=== PATIENT | male | born 1970 | race Caucasian/White ===

== ENCOUNTER 2021-01-09 09:32 | Emergency (ER) | payer OTHER ==
--- NOTE | 2021-01-09 09:33 | ERPHSYRPT ---
- History of Present Illness Time Seen by Provider: 01/09/21 09:33 Historian: patient Exam Limitations: no limitations Physician History: This is a 50-year-old white male who presents with right-sided chest pain that radiates around to his right upper back. The patient states that he has had a history of pneumonia in the past and that his symptoms feel as though he has recurrent pneumonia. He has not been coughing. He denies being short of breath. Patient denies knowing that he has had a fever. He has been exposed to an individual that had a COVID-19 test performed yesterday but has not been exposed to anyone that he knows for certain has had COVID-19 infection. Patient has had no nausea vomiting or diarrhea. He did have some myalgias and arthralgias that were mild and began yesterday afternoon. He has no primary heart disease. He has no known drug allergies. Timing/Duration: yesterday Quality: sharpness Location: other (right ant chest) Chest Pain Radiation: back Severity of Pain-Max: mild Severity of Pain-Current: mild Associated Symptoms: No shortness of breath, No cough, No hurts to breathe Prior Chest Pain/Cardiac Workup: no prior chest pain, no prior cardiac workup Nitro Today/Relief: no nitro taken today Aspirin Treatment Today: no aspirin today Allergies/Adverse Reactions: No Known Drug Allergies Allergy (Unverified 01/09/21 09:50) Home Medications: Citalopram Hydrobromide [Citalopram HBr] 1 ea DAILY 01/09/21 [History] Meloxicam 7.5 mg PO DAILY 01/09/21 [History] Ropinirole HCl 1 ea DAILY 01/09/21 [History] Travel Risk - International Travel Have you traveled outside of the country in past 3 weeks: No - Coronavirus Screening Are you exhibiting any of the following symptoms?: Yes Symptoms: Headaches/Body Aches/Fatigue Close contact with a COVID-19 positive Pt in past 14-21 Days: No - Review of Systems Constitutional: No Symptoms Eyes: No Symptoms Ears, Nose, & Throat: No Symptoms Respiratory: No Symptoms Cardiac: Chest Pain Abdominal/Gastrointestinal: No Symptoms Genitourinary Symptoms: No Symptoms Musculoskeletal: No Symptoms Skin: No Symptoms Neurological: No Symptoms Psychological: No Symptoms Endocrine: No Symptoms Hematologic/Lymphatic: No Symptoms Immunological/Allergic: No Symptoms All Other Systems: Reviewed and Negative - Past Medical History Pertinent Past Medical History: Yes Neurological History: No Pertinent History Cardiac History: No Pertinent History Respiratory History: No Pertinent History Endocrine Medical History: No Pertinent History Musculoskeletal History: Osteoarthritis Other Medical History: SX HX - LEFT KNEE ARTHROSCOPY FOR MENISCUS 2013 - Past Surgical History Past Surgical History: Yes - Nursing Vital Signs Nursing Vital Signs: Initial Vital Signs O2 Sat by Pulse Oximetry 97 01/09/21 09:32 Pain Scale Pain Intensity 6 - Physical Exam General Appearance: no apparent distress Eye Exam: PERRL/EOMI, eyes nml inspection Ears, Nose, Throat Exam: normal ENT inspection, moist mucous membranes Neck Exam: normal inspection, non-tender, supple, full range of motion Respiratory Exam: normal breath sounds, chest tenderness, lungs clear, airway in tact, No respiratory distress Cardiovascular Exam: regular rate/rhythm, normal heart sounds, normal peripheral pulses Gastrointestinal/Abdomen Exam: soft, normal bowel sounds, No tenderness, No guarding Rectal Exam: not done Back Exam: normal inspection, normal range of motion, No CVA tenderness, No vertebral tenderness Extremity Exam: normal inspection, normal range of motion, pelvis stable Neurologic Exam: alert, oriented x 3, cooperative, hand singer II-XII nml as tested, normal mood/affect, nml cerebellar function, nml station & gait, sensation nml Skin Exam: normal color, warm, dry Lymphatic Exam: No adenopathy SpO2 Interpretation: normal O2 Delivery: Room Air - Course Nursing assessment & vital signs reviewed: Yes EKG Interpreted by Me: RATE (85), Sinus Rhythm, NORMAL AXIS, NORMAL INTERVALS, NORMAL QRS, NORMAL ST-T, Other (No acute ischemic changes. No comparison EKG available) Ordered Tests: Active Orders 24 hr Category Date Time Status Recreation Instructor STAT Care 01/09/21 09:35 Active EKG-ER Only STAT Care 01/09/21 09:34 Active IV Insertion STAT Care 01/09/21 09:34 Active Pulse Oximetry (ED) STAT Care 01/09/21 09:34 Active CHEST 1 VIEW (PORTABLE) Stat Exams 01/09/21 09:34 Completed CHEST WITH CONTRAST [CT] Stat Exams 01/09/21 11:02 Completed CBC W DIFF Stat Lab 01/09/21 09:34 Completed CMP Stat Lab 01/09/21 09:45 Completed D-DIMER QUANTITATIVE Stat Lab 01/09/21 09:45 Completed INFLUENZA A+B DAVID Stat Lab 01/09/21 09:52 Completed Lactic Acid Stat Lab 01/09/21 09:52 Completed [place] Screen Stat Lab 01/09/21 09:45 Completed NT PRO BNP Stat Lab 01/09/21 09:45 Completed PROTIME WITH INR Stat Lab 01/09/21 09:45 Completed TROPONIN Q3H Lab 01/09/21 09:45 Completed TROPONIN Q3H Lab 01/09/21 12:45 Ordered TROPONIN Q3H Lab 01/09/21 15:45 Ordered TROPONIN Q3H Lab 01/09/21 18:45 Ordered TROPONIN Q3H Lab 01/09/21 21:45 Ordered Medication Summary Discontinued Medications Generic Name Dose Route Start Last Admin Trade Name Freq PRN Reason Stop Dose Admin Aspirin 324 mg 01/09/21 09:34 01/09/21 10:02 Baby Aspirin 81 Mg Chew PO 01/09/21 09:35 324 mg STAT ONE Administration Sodium Chloride 500 mls @ 500 mls/hr 01/09/21 11:02 01/09/21 12:05 Sodium Chloride 0.9% 500 Ml IV 01/09/21 12:01 Infused .Q1H ONE Infusion Sodium Chloride Confirm 01/09/21 11:05 Sodium Chloride 0.9% 500 Ml Administered 01/09/21 11:06 Dose 500 mls @ ud IV .STK-MED ONE Lab/Rad Data: Laboratory Result Diagrams 01/09/21 09:34 01/09/21 09:45 Laboratory Results 01/09/21 01/09/21 01/09/21 Range/Units 09:52 09:52 09:52 WBC (4.0-10.5) K/mm3 RBC (4.1-5.6) M/mm3 Hgb (12.5-18.0) gm/dl Hct (42-50) % MCV (78-100) fl MCH (26-32) pg MCHC (32-36) g/dl RDW (11.5-14.0) % Plt Count (150-450) K/mm3 MPV (7.5-11.0) fl Gran % (36.0-66.0) % Eos # (Auto) (0-0.5) Absolute Lymphs (auto) (1.0-4.6) Absolute Monos (auto) (0.0-1.3) Lymphocytes % (24.0-44.0) % Monocytes % (0.0-12.0) % Eosinophils % (0.00-5.0) % Basophils % (0.0-0.4) % Absolute Granulocytes (1.4-6.9) Basophils # (0-0.4) PT (8.83-12.87) SECONDS INR (0.8-3.0) D-Dimer (215-500) ng/mL Sodium (137-145) mmol/L Potassium (3.5-5.1) mmol/L Chloride (98-107) mmol/L Carbon Dioxide (22-30) mmol/L Anion Gap (5-15) MEQ/L BUN (9-20) mg/dL Creatinine (0.66-1.25) mg/dL Estimated GFR ML/MIN Glucose (74-106) mg/dL Lactic Acid 1.5 (0.4-2.0) Calcium (8.4-10.2) mg/dL Total Bilirubin (0.2-1.3) mg/dL AST (17-59) U/L ALT (0-50) U/L Alkaline Phosphatase (38-126) U/L Troponin I (0.000-0.034) ng/mL NT-Pro-B Natriuret Pep (0-450) pg/mL Serum Total Protein (6.3-8.2) g/dL Albumin (3.5-5.0) g/dL Monoscreen (Negative) Influenza Type A Ag NEGATIVE (NEGATIVE) Influenza Type B Ag NEGATIVE (NEGATIVE) Group A Strep Antibody NOT DETECTED (NEGATIVE) 01/09/21 01/09/21 01/09/21 Range/Units 09:45 09:45 09:45 WBC (4.0-10.5) K/mm3 RBC (4.1-5.6) M/mm3 Hgb (12.5-18.0) gm/dl Hct (42-50) % MCV (78-100) fl MCH (26-32) pg MCHC (32-36) g/dl RDW (11.5-14.0) % Plt Count (150-450) K/mm3 MPV (7.5-11.0) fl Gran % (36.0-66.0) % Eos # (Auto) (0-0.5) Absolute Lymphs (auto) (1.0-4.6) Absolute Monos (auto) (0.0-1.3) Lymphocytes % (24.0-44.0) % Monocytes % (0.0-12.0) % Eosinophils % (0.00-5.0) % Basophils % (0.0-0.4) % Absolute Granulocytes (1.4-6.9) Basophils # (0-0.4) PT 13.1 H (8.83-12.87) SECONDS INR 1.16 (0.8-3.0) D-Dimer 542 H* (215-500) ng/mL Sodium (137-145) mmol/L Potassium (3.5-5.1) mmol/L Chloride (98-107) mmol/L Carbon Dioxide (22-30) mmol/L Anion Gap (5-15) MEQ/L BUN (9-20) mg/dL Creatinine (0.66-1.25) mg/dL Estimated GFR ML/MIN Glucose (74-106) mg/dL Lactic Acid (0.4-2.0) Calcium (8.4-10.2) mg/dL Total Bilirubin (0.2-1.3) mg/dL AST (17-59) U/L ALT (0-50) U/L Alkaline Phosphatase (38-126) U/L Troponin I < 0.012 (0.000-0.034) ng/mL NT-Pro-B Natriuret Pep (0-450) pg/mL Serum Total Protein (6.3-8.2) g/dL Albumin (3.5-5.0) g/dL Monoscreen NEGATIVE (Negative) Influenza Type A Ag (NEGATIVE) Influenza Type B Ag (NEGATIVE) Group A Strep Antibody (NEGATIVE) 01/09/21 01/09/21 Range/Units 09:45 09:34 WBC 8.4 (4.0-10.5) K/mm3 RBC 5.41 (4.1-5.6) M/mm3 Hgb 15.9 (12.5-18.0) gm/dl Hct 48.1 (42-50) % MCV 88.9 (78-100) fl MCH 29.4 (26-32) pg MCHC 33.1 (32-36) g/dl RDW 12.6 (11.5-14.0) % Plt Count 253 (150-450) K/mm3 MPV 9.4 (7.5-11.0) fl Gran % 74.4 H (36.0-66.0) % Eos # (Auto) 0.13 (0-0.5) Absolute Lymphs (auto) 1.28 (1.0-4.6) Absolute Monos (auto) 0.71 (0.0-1.3) Lymphocytes % 15.2 L (24.0-44.0) % Monocytes % 8.4 (0.0-12.0) % Eosinophils % 1.5 (0.00-5.0) % Basophils % 0.5 (0.0-0.4) % Absolute Granulocytes 6.27 (1.4-6.9) Basophils # 0.04 (0-0.4) PT (8.83-12.87) SECONDS INR (0.8-3.0) D-Dimer (215-500) ng/mL Sodium 135 L (137-145) mmol/L Potassium 4.2 (3.5-5.1) mmol/L Chloride 106 (98-107) mmol/L Carbon Dioxide 22 (22-30) mmol/L Anion Gap 11.6 (5-15) MEQ/L BUN 17 (9-20) mg/dL Creatinine 0.96 (0.66-1.25) mg/dL Estimated GFR > 60.0 ML/MIN Glucose 104 (74-106) mg/dL Lactic Acid (0.4-2.0) Calcium 9.3 (8.4-10.2) mg/dL Total Bilirubin 0.80 (0.2-1.3) mg/dL AST 31 (17-59) U/L ALT 22 (0-50) U/L Alkaline Phosphatase 48 (38-126) U/L Troponin I (0.000-0.034) ng/mL NT-Pro-B Natriuret Pep 59.5 (0-450) pg/mL Serum Total Protein 6.9 (6.3-8.2) g/dL Albumin 4.0 (3.5-5.0) g/dL Monoscreen (Negative) Influenza Type A Ag (NEGATIVE) Influenza Type B Ag (NEGATIVE) Group A Strep Antibody (NEGATIVE) - Progress Progress: improved Air Movement: good Progress Note: 01/09/21 10:03 Chest x-ray shows no acute cardiopulmonary process 01/09/21 12:36 CAT scan of the chest with IV contrast reveals no acute cardiopulmonary process. There is no evidence for pneumonia or pulmonary emboli. Blood Culture(s) Obtained: No Antibiotics given: No Counseled pt/family regarding: lab results, diagnosis, need for follow-up, rad results - Departure Departure Disposition: Home Clinical Impression: Non-cardiac chest pain Condition: Stable Critical Care Time: No Referrals: VIRGINIA HENDRIX MD [Primary Care Provider] - Additional Instructions: Take all your medications as prescribed. Follow-up with your primary care physician for further management. Quarantine yourself until you receive your Covid 19 test results.
[2021-01-09] MEDS ORDERED: BABY ASPIRIN 81 MG CHEW PO ONE (09:34)
[2021-01-09 09:58] LABS: Absolute Neutrophil Ct (ANC) 6.27 (1.4-6.9); BASOPHIL % 0.5 % (0.0-0.4); Basophil (Absolute #) 0.04 (0-0.4); Eosinophil % 1.5 % (0.00-5.0); Eosinophil (Absolute #) 0.13 (0-0.5); Hematocrit 48.1 % (42-50); Hemoglobin 15.9 gm/dl (12.5-18.0); Lymphocyte (Absolute #) 1.28 (1.0-4.6); Lymphocytes % 15.2 % (24.0-44.0); Mean Cell Volume 88.9 fl (78-100); Mean Corpuscular Hemoglobin 29.4 pg (26-32); Mean Corpuscular Hgb Concent. 33.1 g/dl (32-36); Mean Platelet Volume 9.4 fl (7.5-11.0); Monocyte (Absolute #) 0.71 (0.0-1.3); Monocytes % 8.4 % (0.0-12.0); Neutrophil % 74.4 % (36.0-66.0); Platelet Count 253 K/mm3 (150-450); Red Blood Count 5.41 M/mm3 (4.1-5.6); Red Cell Distribution Width 12.6 % (11.5-14.0); White Blood Count 8.4 K/mm3 (4.0-10.5)
--- NOTE | 2021-01-09 09:59 | XRAY ---
Indication: Right chest pain. Comparison: None Portable chest demonstrates normal heart and lungs with incidental small right hilar calcified node. Bony thorax intact with mild degenerative changes and partially visualized left shoulder arthroplasty. Impression: Nonacute chest with chronic features.
[2021-01-09 10:20] LABS: INR 1.16 (0.8-3.0); PROTIME 13.1 SECONDS (8.83-12.87)
[2021-01-09 10:33] LABS: ALKALINE PHOSPHATASE 48 U/L (38-126); ANION GAP 11.6 MEQ/L (5-15); BLOOD UREA NITROGEN 17 mg/dL (9-20); CHLORIDE 106 mmol/L (98-107); Calcium 9.3 mg/dL (8.4-10.2); Carbon Dioxide 22 mmol/L (22-30); Creatinine 1 0.96 mg/dL (0.66-1.25); EST GLOMERULAR FILTRATION RATE > 60.0 ML/MIN; Glucose 104 mg/dL (74-106); NT PRO BNP 59.5 pg/mL (0-450); Potassium 4.2 mmol/L (3.5-5.1); SGOT/AST 31 U/L (17-59); SGPT/ALT 22 U/L (0-50); SODIUM 135 mmol/L (137-145); Total Protein 6.9 g/dL (6.3-8.2)
[2021-01-09 10:40] LABS: INFLUENZA A NEGATIVE (NEGATIVE); INFLUENZA B NEGATIVE (NEGATIVE)
[2021-01-09] MEDS ORDERED: Sodium Chloride 0.9% 500 ML 500 ML IV ONE ×2 (11:02→11:05)
[2021-01-09 11:09] VITALS: O2SAT 98
--- NOTE | 2021-01-09 12:24 | XRAY ---
Indication: Right chest pain. Elevated d-dimer. Multiple contiguous images obtained through the chest using 100 cc Isovue 370 contrast and PE protocol. Comparison: None There is adequate opacification of the pulmonary arteries to include the lobar and segmental branches. No pulmonary embolus. Heart is not enlarged. Aorta is normal in course and caliber. No pathologic mediastinal/hilar lymphadenopathy. Lungs inflated with minimal bibasilar fibrosis/scarring and 8 mm medial right middle lobe calcified granuloma. No suspicious pulmonary mass/nodule, infiltrate, or effusion. Bony thorax intact with partially visualized left shoulder arthroplasty. Limited upper abdomen demonstrates 7 mm right lobe hepatic cyst versus hemangioma near the dome of the diaphragm. Impression: 1. Negative pulmonary embolus. No acute cardiopulmonary abnormalities. 2. Incidental right middle lobe calcified granuloma and subcentimeter hepatic cyst/hemangioma.
[2021-01-09 12:48] VITALS: BP 133/79; PULSE 80
== END 2021-01-09 12:53 | disposition home or self-care (01) ==
LOC: ED 09:32
DX: R07.9 Chest pain, unspecified (principal); R51.9 Headache, unspecified; R53.83 Other fatigue; Z20.828 Contact with and (suspected) exposure to other viral communicable diseases; Z87.01 Personal history of pneumonia (recurrent)
CPT/HCPCS: 36000; 36415; 71045; 71260; 80053; 83605; 83880; 84484; 85025; 85379; 85610; 86308; 87400; 87651; 93005; 93041; 94760; 96360; 99285; U0003; A9270-GY

== ENCOUNTER 2021-05-07 06:02 | Day surgery (SDC) | payer OTHER ==
[~2021-05-07 06:02] MED LIST: Lactated Ringers 1,000 ML IV SCH
[2021-05-07 06:34] VITALS: O2SAT 97
[2021-05-07] MEDS ORDERED: Versed 2 MG/2 ML Injection ONE (07:33)
[2021-05-07] MEDS ORDERED: DIPRIVAN 200 MG/20 ML IV ONE ×2 (07:33→08:00)
[2021-05-07] MEDS ORDERED: SUBLIMAZE 100 MCG/2 ML ONE (07:53)
[2021-05-07 08:43] VITALS: BP 107/74; PULSE 55
--- NOTE | 2021-05-07 08:57 | OP ---
SURGERY DATE/TIME: 05/07/2021 0739 PREOPERATIVE DIAGNOSIS: Screening colonoscopy. POSTOPERATIVE DIAGNOSIS: Normal colon. PROCEDURE: Colonoscopy. SURGEON: Chang Kingsley M.D. ANESTHESIA: MAC by Lee Schafer CRNA. ESTIMATED BLOOD LOSS: None. SPECIMENS: None. DESCRIPTION OF PROCEDURE: After informed written consent was obtained, the patient was taken to the endoscopy suite. He underwent monitored anesthesia and anesthesia was titrated to desired level of consciousness. A digital rectal exam showed normal sphincter tone and no internal lesions. The scope was inserted into the rectum and advanced to the level of the cecum. The cecum was reached and verified with direct visualization of ileocecal valve. Upon withdrawal careful mucosal inspection revealed no gross abnormalities although there was liquid stool throughout multiple areas of the colon. The prep was suboptimal. Prior to withdrawal retroflexion was performed and showed no internal lesions. The scope was removed. The patient was transferred to the recovery room in good condition.
== END 2021-05-07 08:46 | disposition home or self-care (01) ==
LOC: SDC 06:02
PROVIDERS: ATTEND Family Medicine
DX: Z12.11 Encounter for screening for malignant neoplasm of colon (principal)
CPT/HCPCS: J2250; J2704; J3010